=== PATIENT | female | born 1950 | race Caucasian/White ===

== ENCOUNTER 2016-09-19 20:36 | Observation (INO) | payer MEDICARE, MEDICAID ==
[~2016-09-19] VITALS: Ht 162.6 cm; Wt 107.4 kg
--- NOTE | 2016-09-19 21:33 | ERA ---
ER Documentation Chief Complaint Date/Time DATE: 09/19/16 TIME: 21:00 Chief Complaint weak/dizzy after taking total of 5-7 extra htn meds throughout day HPI The patient is a 66-year-old female, presenting to the ER because she has been taking metoprolol 50 mg 3 times and clonidine 0.1 mg 3 times daily in addition to lisinopril 10 mg daily. She is also supposed to take metoprolol 50 mg once a day and clonidine 0.1 mg once a day. However she is under a lot of stress and could not control her blood pressure, therefore she has been taking any medication as mentioned above. She feels anxious, complains of weak and dizzy, denies syncope, near syncope, neck pain, chest pain, dyspnea, abdominal pain, vomiting, dysuria, diarrhea. She does not smoke or drink Past medical history: Hypertension, dyslipidemia, hypothyroidism, anxiety Past surgical history: Left leg varicosis vein, cholecystectomy, fibroid resection, peptic ulcer ROS All systems reviewed and are negative except as per history of present illness. Medications Home Meds Reported Medications Aspirin* (Aspirin* EC) 81 Mg Tablet.dr, 81 MG PO DAILY, TAB 09/19/16 Esomeprazole Mag Trihydrate (Nexium) 40 Mg Capsule.dr, 40 MG PO DAILY, #30 CAP 09/19/16 Metoprolol Succinate* (Toprol XL*) 50 Mg Tab.er.24h, 50 MG PO DAILY, #30 TAB 09/19/16 Pravastatin Sodium* (Pravastatin Sodium*) 20 Mg Tablet, 20 MG PO HS, TAB 09/19/16 Methimazole* (Methimazole*) 5 Mg Tablet, 5 MG PO TID, TAB 09/19/16 Enalapril Maleate* (Enalapril Maleate*) 10 Mg Tablet, 10 MG PO DAILY, TAB 09/19/16 Acetaminophen/Aspirin/Caffeine* (Excedrin*) 1 Tab Tab, 1 TAB PO, TAB 09/19/16 Acetaminophen* (Acetaminophen*) 500 MG Extra Strength Tablet, 500 MG PO Q4H Y for PAIN AND OR ELEVATED TEMP, TAB 09/19/16 Allergies Allergies: Coded Allergies: No Known Drug Allergies (Verified Allergy, Unknown, 09/19/16) PMhx/Soc History of Surgery: Yes (VERACOSE VEIN SX, FIBROIDS, GALL BLADER, BILAT BREASTS ) Anesthesia Reaction: No Hx Neurological Disorder: No Hx Respiratory Disorders: No Hx Cardiac Disorders: Yes (HYPERLIPIDS) Hx Psychiatric Problems: No Hx Miscellaneous Medical Probl: Yes (ANXIETY) Hx Alcohol Use: No Hx Substance Use: No Hx Tobacco Use: No Smoking Status: Never smoker Physical Exam Vitals Vital Signs Date Time Temp Pulse Resp B/P Pulse Ox O2 Delivery O2 Flow Rate FiO2 09/19/16 20:49 97.8 54 17 137/66 97 Physical Exam Const: No acute distress. Head: Atraumatic. Eyes: Normal Conjunctiva. ENT: Normal External Ears, Nose and Mouth. Neck: Full range of motion. No meningismus. Resp: Clear to auscultation bilaterally. Cardio: Regular bradycardia Abd: Soft, non distended, normal bowel sounds, non tender. Skin: No petechiae or rashes. Back: No midline or flank tenderness. Ext: No cyanosis, or edema. Neur: Awake and alert. No focal deficit Psych: Normal Mood and Affect. Result Diagram: 09/19/16205409/19/162054 Results 24 hrs Laboratory Tests Test 09/19/16 20:55 White Blood Count 6.110^3/ul Red Blood Count 4.3810^6/ul Hemoglobin 13.7g/dl Hematocrit 40.8% Mean Corpuscular Volume 93.2fl Mean Corpuscular Hemoglobin 31.3pg Mean Corpuscular Hemoglobin Concent 33.6g/dl Red Cell Distribution Width 12.3% Platelet Count 90382^3/UL Mean Platelet Volume 10.6fl Neutrophils % 53.8% Lymphocytes % 35.7% Monocytes % 8.8% Eosinophils % 1.0% Basophils % 0.5% Nucleated Red Blood Cells % 0.0/100WBC Neutrophils # 3.310^3/ul Lymphocytes # 2.210^3/ul Monocytes # 0.510^3/ul Eosinophils # 0.110^3/ul Basophils # 0.010^3/ul Nucleated Red Blood Cells # 0.010^3/ul Sodium Level 140mmol/L Potassium Level 4.3mmol/L Chloride Level 106mmol/L Carbon Dioxide Level 29mmol/L Anion Gap 9 Blood Urea Nitrogen 21mg/dl Creatinine 0.79mg/dl Glucose Level 95mg/dl Calcium Level 9.3mg/dl Procedures/MDM EKG: Read by emergency physician Rate/Rhythm: Sinus bradycardia 52 beats/min QRS, ST, T-waves: No ST elevation, no T inversion, LVH Impression: Abnormal EKG MEDICAL MAKING DECISION: The patient is a 66-year-old female, presenting with acute bradycardia due to acute accidental overdose on beta-tori The differential diagnoses considered include but are not limited to sick sinus syndrome, acute coronary syndrome, acute myocardial infarction, pericarditis, pulmonary embolism, aortic dissection, pneumonia, pleural effusion, pneumothorax , GERD, chest wall pain. Departure Diagnosis: Primary Impression: Bradycardia Additional Impression: Accidental overdose Condition: Stable Comments I discussed the findings with the patient. I discussed the patient with the on- call hospitalist Dr. Flores who was made aware of the lab, the treatment, the patient condition. The patient is admitted to telemetry for 24 hours observation at 1025 pm EVE SHOEMAKER MD September 19, 2016 21:33 EVE SHOEMAKER MD September 19, 2016 21:33
[2016-09-19 22:11] LABS: ADD SCAN DIFF NO
[2016-09-19 22:13] LABS: BASOPHILS % 0.5 % (0.0-2.0); EOSINOPHILS # 0.1 10^3/ul (0.0-0.5); HEMATOCRIT 40.8 % (37.0-47.0); HEMOGLOBIN 13.7 g/dl (12.0-16.0); LYMPHOCYTES # 2.2 10^3/ul (0.8-2.9); LYMPHOCYTES % 35.7 % (15.0-51.0); MEAN CORPUSCULAR HEMOGLOBIN 31.3 pg (29.0-33.0); MEAN CORPUSCULAR HGB CONC 33.6 g/dl (32.0-37.0); MEAN CORPUSCULAR VOLUME 93.2 fl (82.0-101.0); MEAN PLATELET VOLUME 10.6 fl (7.4-10.4); MONOCYTE # 0.5 10^3/ul (0.3-0.9); MONOCYTES % 8.8 % (0.0-11.0); NEUTROPHIL # 3.3 10^3/ul (1.6-7.5); NEUTROPHILS % 53.8 % (39.0-77.0); PLATELET COUNT 263 10^3/UL (140-415); RED BLOOD COUNT 4.38 10^6/ul (4.20-5.40); RED CELL DISTRIBUTION WIDTH 12.3 % (11.5-14.5); WHITE BLOOD COUNT 6.1 10^3/ul (4.8-10.8)
[2016-09-19 22:15] LABS: POTASSIUM 4.3 mmol/L (3.5-5.1)
[2016-09-19 22:18] LABS: CREATININE 0.79 mg/dl (0.44-1.00)
[2016-09-19 22:19] LABS: CALCIUM 9.3 mg/dl (8.4-10.2)
[2016-09-19] MEDS ORDERED: EXCED PO (22:32)
[2016-09-19] MEDS ORDERED: METH-493 PO (22:32)
[2016-09-19] MEDS ORDERED: METO50TA16 PO (22:32)
[2016-09-19] MEDS ORDERED: ENAL10TA PO (22:32)
[2016-09-19] MEDS ORDERED: PRAV20TA63 PO (22:32)
[2016-09-19] MEDS ORDERED: ACET-141 PO (22:32)
[2016-09-19] MEDS ORDERED: ESOM40CA PO (22:32)
[2016-09-19] MEDS ORDERED: ASPI-664 PO (22:36)
--- NOTE | 2016-09-19 22:51 | HP ---
Date/Time of Note Date/Time of Note DATE: 09/19/16 TIME: 22:51 Assessment/Plan VTE Prophylaxis VTE Prophylaxis Intervention: LMWH Lines/Catheters IV Catheter Type (from [facility]): Saline Lock Assessment/Plan Chief Complaint/Hosp Course This is a 66-year-old female being admitted to the telemetry floor for: #1 symptomatic bradycardia: Likely secondary to beta-tori overdose. Will currently hold medications at this time. Continue patient on telemetry. Consult cardiology. #2 hypotension: Secondary to blood pressure medication overdose. Will hold antihypertensives for now. Continue to monitor blood pressure. Consider readjusting medication for her blood pressure as patient states that her current regimen of metoprolol and clonidine once a day are not adequate. #3 hyperthyroidism: We will check a TSH and thyroid profile, continue methimazole. #4 Hypertension: Currently holding beta-tori and GALINA and clonidine. Continue to monitor blood pressure. Restart/adjust blood pressure medications as indicated. #5 dyslipidemia: Continue statin. #6 DVT and GI prophylaxis: Lovenox, famotidine Further treatment strategy will be implemented as per the clinical course. Problems: HPI/ROS Admit Date/Time Admit Date/Time Hx of Present Illness Chief complaint: Low blood pressure low heart rate The patient is a 66-year-old female, presented to the ER because she took metoprolol 50 mg 3 times and clonidine 0.1 mg 3 times daily in addition to lisinopril 10 mg because her blood pressure was not improving. States that she was under a lot of stress and her blood pressure as everything were not improving therefore she took more of her medications and she was supposed to. Complains of feeling weak and dizzy, denies syncope, near syncope, neck pain, chest pain, dyspnea, abdominal pain, vomiting, dysuria, diarrhea. Allergies: nkda meds: see JUN ROS Const: As per HPI Eyes : No pain discharge or redness or change in visual acuity ENT: No pain, sore throat, congestion, congestion, dysphagia or discharge Respiratory: No shortness of breath, cough, sputum, wheezing, or pleuritic pain Cardiovascular: As per HPI GI : no change in appetite, abdominal pain, nausea, vomiting, diarrhea, constipation, or change in the color his stool Genitourinary: No dysuria, hematuria, flank pain , discharge or CVA tenderness Musculoskeletal: No joint pain, back pain, neck pain, restricted range of motion in neck or joints Skin: No rash, bruising or hives Neuro: As per HPI Endocrine: No polyuria, polydipsia, temperature intolerance Psych: No hallucination, depression, anxiety or suicidal ideation PMH/Family/Social Past Medical History Hypertension, dyslipidemia, hyperthyroidism, anxiety, reflux Past Surgical History Left leg varicosis vein, cholecystectomy, fibroid resection, peptic ulcer surgery, appendectomy, lumpectomy Family History Significant Family History: hypertension (Mom, dad) Social History Alcohol Use: none Smoking Status: Former smoker (1 pack a day 40 years, she quit 5 years ago) Drug Use: none Exam/Review of Systems Vital Signs Vitals Vital Signs Date Time Temp Pulse Resp B/P Pulse Ox O2 Delivery O2 Flow Rate FiO2 09/19/16 22:49 56 18 132/77 97 Room Air 09/19/16 20:49 97.8 Exam Exam General: Patient is well-developed well-nourished The patient is alert oriented -3 lying comfortably in bed. HEENT: Atraumatic, normocephalic. The pupils are equal, round and reactive. Extraocular motor are intact Neck: Supple with full range of motion. No rigidity or meningismus Chest: Nontender Lungs: Clear to auscultation bilaterally no crackles rales or wheezing Heart: Bradycardia, no overt murmurs appreciated Abdomen: Soft , nontender, nondistended , bowel sounds are present. No guarding no rebound tenderness , No masses or organomegaly. Extremities: Normal to inspection, no edema no cyanosis Neurologic: Normal mental status, speech normal, cranial nerves II through XII are intact, motor and sensory are intact, no focal weakness Additional Comments EKG: Rate/Rhythm: Sinus bradycardia 52 beats/min QRS, ST, T-waves: No ST elevation, no T inversion, LVH As per ED physician documentation Labs Result Diagram: 09/19/16205409/19/162054 Medications Medications Current Medications Ondansetron HCl (Zofran Inj) 4 mg Q6H PRN IV NAUSEA AND/OR VOMITING; Start at 23:00 Acetaminophen (Tylenol Tab) 650 mg Q6H PRN PO PAIN LEVEL 1-3 OR FEVER; Start at 23:00 Docusate Sodium (Colace) 100 mg Q12H PRN PO CONSTIPATION; Start 09/19/16 at 23: 00; Status UNV Bisacodyl (Dulcolax) 5 mg DAILY PRN PO CONSTIPATION; Start 09/19/16 at 23:00 Famotidine (Pepcid) 20 mg Q12 PO ; Start 09/19/16 at 23:00 Enoxaparin Sodium (Lovenox) 40 mg DAILY SC ; Start 09/20/16 at 09:00 Aspirin (Halfprin) 81 mg DAILY PO ; Start 09/20/16 at 09:00; Status UNV Methimazole (Tapazole) 5 mg TID PO ; Start 09/20/16 at 09:00; Status UNV Miscellaneous Information 20 mg HS PO ; Start 09/20/16 at 21:00; Status UNV BRITTANY FLOWERS September 19, 2016 22:51
[2016-09-19] MEDS ORDERED: ONDANSETRON 4 MG INJ IV PRN (23:00)
[2016-09-19] MEDS ORDERED: BISACODYL (EC) 5 MG TAB PO PRN (23:00)
[2016-09-19] MEDS ORDERED: NACL 0.9% 3 ML SYG IV SCH (23:00)
[2016-09-19] MEDS ORDERED: DOCUSATE SODIUM 100 MG CAP PO PRN (23:00)
[2016-09-19 23:11] VITALS: PULSE 56
[2016-09-19 23:15] VITALS: BP 137/73; PULSE 56; RESP 18
[2016-09-19] MEDS: FAMOTIDINE 20 MG TAB PO SCH (23:37)
[2016-09-19 23:46] LABS: CREATINE KINASE 48 IU/L (23-200)
[2016-09-19 23:58] LABS: CK-MB 0.75 ng/ml (0.0-2.4)
[2016-09-19 23:59] LABS: TROPONIN-I < 0.012 ng/ml (0.00-0.12)
[2016-09-20] VITALS (12 sets, daily range): BP systolic 99–164; BP diastolic 56–82; PULSE 52–70; RESP 16–20; Ht 162.6 cm; Wt 107.4 kg
[2016-09-20] MEDS ORDERED: SOD CHLORIDE 0.9% 500 ML IV ONE (05:30)
[2016-09-20 06:41] LABS: ADD SCAN DIFF NO
[2016-09-20 07:05] LABS: POTASSIUM 4.3 mmol/L (3.5-5.1)
[2016-09-20 07:06] LABS: ALBUMIN 4.3 g/dl (3.3-4.9); ALBUMIN/GLOBULIN RATIO 1.59; BILIRUBIN,INDIRECT 0.2 mg/dl (0-1.1); BILIRUBIN,TOTAL 0.2 mg/dl (0.2-1.3); CALCIUM 9.1 mg/dl (8.4-10.2); CHOL/HDL RATIO 3.6 RATIO; CREATININE 0.86 mg/dl (0.44-1.00); MAGNESIUM 2.1 mg/dl (1.7-2.5)
[2016-09-20 07:37] LABS: THYROID STIMULATING HORMONE 2.16 MIU/L (0.465-4.680)
[2016-09-20 08:09] LABS: CREATINE KINASE 42 IU/L (23-200)
[2016-09-20] MEDS: METHIMAZOLE 5 MG TAB PO SCH ×3 (08:13→20:34)
[2016-09-20] MEDS: ASPIRIN (EC) 81 MG TAB PO SCH (08:13)
[2016-09-20] MEDS: FAMOTIDINE 20 MG TAB PO SCH ×2 (08:13→20:34)
[2016-09-20] MEDS: ENOXAPARIN 40 MG/0.4 ML SYG SC SCH (08:16)
[2016-09-20 08:19] LABS: CK-MB 0.44 ng/ml (0.0-2.4)
[2016-09-20 08:25] LABS: TROPONIN-I < 0.012 ng/ml (0.00-0.12)
--- NOTE | 2016-09-20 10:45 | CONS ---
Date/Time of Note Date/Time of Note DATE: 09/20/16 TIME: 10:35 Assessment/Plan Assessment/Plan Chief Complaint/Hosp Course Bradycardia: Sinus, no heart block. Secondary to extra doses of metoprolol and clonidine. Now resolved. Dyspnea on exertion: likely from body habitus/obesity. No e/o heart failure by exam but will check echo HTN: BP on lower side from meds last night. Hyperthyroidism: TSH pending HL -hold metoprolol, clonidine -start amlodipine 5mg with holding parameters -ASA, lipitor -echo Problems: Consultation Date/Type/Reason Admit Date/Time Date of Consultation: September 20, 2016 Type of Consultation: Cardiology Reason for Consultation Bradycardia Referring Provider: BRITTANY FLOWERS Hx of Present Illness 66 yo F with a h/o HTN, HL, hyperthyroidism, who was brought in for evaluation of weakness and was noted to have bradycardia and transient hypotension. Pt notes that she has been having life related stress for the past 2 weeks and around the same time period, her BP has been difficult to control up to the 170s. She has been prescribed enalapril which she does not like to take as well as metoprolol. A friend of her also gave her clonidine. She states that yesterday she was feeling neck and headaches and her BP was 177 again. Within a few hours she took 3 metoprolol 50mg pills, 2-3 clonidine 1mg, and enalapril. She was not feeling well and had dizziness so she had her neighbor call 911. Currently she feels like shes back to her baseline. No chest pain or SOB though she mentions that she has been having some dyspnea with exertion. No syncope. Per HPI Past Medical History per HPI Family History Significant Family History: hypertension Social History Alcohol Use: none Smoking Status: Former smoker (1 pack a day 40 years, she quit 5 years ago) Drug Use: none Exam/Review of Systems Vital Signs Vitals Vital Signs Date Time Temp Pulse Resp B/P Pulse Ox O2 Delivery O2 Flow Rate FiO2 09/20/16 08:19 70 09/20/16 07:38 97.5 17 112/58 97 09/19/16 22:49 Room Air Intake and Output 09/19/16 09/19/16 09/20/16 14:59 22:59 06:59 Intake Total 460 ml Balance 460 ml Exam Constitutional: alert, oriented Psych: no complaints Head: normocephalic Eyes: nl conjunctiva ENMT: nl external ears & nose Neck: supple, No jvd Respiratory: clear to auscultation, No crackles/rales Cardiovascular: regular rate and rhythm, No edema, No systolic murmur Gastrointestinal: non-tender, soft Neurological: nl mental status, nl speech Results EKG: sinus bradycardia, no heart block Tele without heart block. Lowest HR 40s while asleep Result Diagram: 09/19/16205409/20/16 0600 Results 24 hrs Laboratory Tests Test 09/19/16 20:55 09/20/16 06:00 White Blood Count 6.1 Red Blood Count 4.38 Hemoglobin 13.7 Hematocrit 40.8 Mean Corpuscular Volume 93.2 Mean Corpuscular Hemoglobin 31.3 Mean Corpuscular Hemoglobin Concent 33.6 Red Cell Distribution Width 12.3 Platelet Count 263 Mean Platelet Volume 10.6 H Neutrophils % 53.8 Lymphocytes % 35.7 Monocytes % 8.8 Eosinophils % 1.0 Basophils % 0.5 Nucleated Red Blood Cells % 0.0 Neutrophils # 3.3 Lymphocytes # 2.2 Monocytes # 0.5 Eosinophils # 0.1 Basophils # 0.0 Nucleated Red Blood Cells # 0.0 Sodium Level 140 138 Potassium Level 4.3 4.3 Chloride Level 106 103 Carbon Dioxide Level 29 31 Anion Gap 9 8 Blood Urea Nitrogen 21 H 24 H Creatinine 0.79 0.86 Glucose Level 95 81 Calcium Level 9.3 9.1 Creatine Kinase 48 42 Creatine Kinase Index 1.6 1.0 Creatinine Kinase MB (Mass) 0.75 0.44 Troponin I < 0.012 < 0.012 Magnesium Level 2.1 Total Bilirubin 0.2 Direct Bilirubin 0.00 Indirect Bilirubin 0.2 Aspartate Amino Transf (AST/SGOT) 27 Alanine Aminotransferase (ALT/SGPT) 38 Alkaline Phosphatase 102 Total Protein 7.0 Albumin 4.3 Globulin 2.70 Albumin/Globulin Ratio 1.59 Triglycerides Level 171 H Cholesterol Level 211 H LDL Cholesterol, Calculated 119 HDL Cholesterol 58 Cholesterol/HDL Ratio 3.6 Thyroid Stimulating Hormone (TSH) 2.160 Medications Medications Current Medications Ondansetron HCl (Zofran Inj) 4 mg Q6H PRN IV NAUSEA AND/OR VOMITING; Start at 23:00 Acetaminophen (Tylenol Tab) 650 mg Q6H PRN PO PAIN LEVEL 1-3 OR FEVER; Start at 23:00 Docusate Sodium (Colace) 100 mg Q12H PRN PO CONSTIPATION; Start 09/19/16 at 23: 00 Bisacodyl (Dulcolax) 5 mg DAILY PRN PO CONSTIPATION; Start 09/19/16 at 23:00 Famotidine (Pepcid) 20 mg Q12 PO Last administered on 09/20/16 08:13; Admin Dose 20 MG; Start 09/19/16 at 23:00 Enoxaparin Sodium (Lovenox) 40 mg DAILY SC Last administered on 09/20/16 08:16 ; Admin Dose 40 MG; Start 09/20/16 at 09:00 Aspirin (Halfprin) 81 mg DAILY PO Last administered on 09/20/16 08:13; Admin Dose 81 MG; Start 09/20/16 at 09:00 Methimazole (Tapazole) 5 mg TID PO Last administered on 09/20/16 08:13; Admin Dose 5 MG; Start 09/20/16 at 09:00 Atorvastatin Calcium (Lipitor) 10 mg DAILY@21 PO ; Start 09/20/16 at 21:00 SAHRA LALA September 20, 2016 10:45
[2016-09-20 11:07] LABS: BASOPHILS % 0.6 % (0.0-2.0); EOSINOPHILS # 0.1 10^3/ul (0.0-0.5); EOSINOPHILS % 1.2 % (0.0-7.0); HEMATOCRIT 38.9 % (37.0-47.0); LYMPHOCYTES # 2.9 10^3/ul (0.8-2.9); LYMPHOCYTES % 41.8 % (15.0-51.0); MEAN CORPUSCULAR HEMOGLOBIN 31.1 pg (29.0-33.0); MEAN CORPUSCULAR HGB CONC 33.4 g/dl (32.0-37.0); MEAN CORPUSCULAR VOLUME 93.1 fl (82.0-101.0); MEAN PLATELET VOLUME 10.8 fl (7.4-10.4); MONOCYTE # 0.7 10^3/ul (0.3-0.9); MONOCYTES % 9.7 % (0.0-11.0); NEUTROPHIL # 3.2 10^3/ul (1.6-7.5); NEUTROPHILS % 46.6 % (39.0-77.0); PLATELET COUNT 269 10^3/UL (140-415); RED BLOOD COUNT 4.18 10^6/ul (4.20-5.40); RED CELL DISTRIBUTION WIDTH 12.5 % (11.5-14.5); WHITE BLOOD COUNT 6.9 10^3/ul (4.8-10.8)
--- NOTE | 2016-09-20 11:41 | PN ---
DATE: 09/20/2016 TIME OF EVALUATION: 9:45 a.m. SUBJECTIVE DATA: Denies any chest pain. Denies any dyspnea. OBJECTIVE DATA: VITAL SIGNS: Temperature 97.4, pulse is 70, respiratory rate 17, blood pressure 112/58, oxygen saturation 97% on room air. GENERAL: This is an obese Pashto female sitting in bed in no apparent distress. HEENT: Head normocephalic and atraumatic. Eyes: Anicteric sclerae. Conjunctivae clear. ENT: Nasal septum is midline. Oral mucosa is dry. NECK: Increased neck circumference. Supple. No JVD noticed. RESPIRATORY: Bilaterally diminished breath sounds. No adventitious breath sounds. No use of accessory muscles of respiration. CARDIAC: Regular rate and rhythm. No murmurs heard. ABDOMEN: Soft, nontender, and nondistended. Bowel sounds positive in all 4 quadrants. GENITOURINARY: Deferred. EXTREMITIES: No cyanosis, no clubbing, no edema. Bilateral lower extremity chronic venous changes with a discoloration on bilateral calves. Peripheral pulses in the bilateral lower extremities palpable. NEUROLOGIC: The patient is awake, alert, and oriented. Cranial nerves are grossly intact. LABORATORY AND DIAGNOSTIC DATA: Sodium 138, potassium 4.3, chloride 103, carbon dioxide 31, anion gap 8, BUN 24, creatinine 0.86, glucose 81, calcium 9.1. Triglycerides 171, total cholesterol 211, LDL 119, HDL of 58. ASSESSMENT AND PLAN: 1. Symptomatic bradycardia. Most probably secondary to underlying beta tori overdose. Beta blockers on hold at this time. Cardiology to evaluate the patient. 2. Essential hypertension with current hypotensive episode for medication overdose. Antihypertensives on hold at this time. To be evaluated by cardiology. 3. Hyperthyroidism. The patient is currently on methimazole. Will obtain an endocrinology evaluation. 4. Dyslipidemia. Continue statins. 5. Bilateral lower extremity varicosities. 6. Obesity. Body mass index of 40.6 kilograms per meter squared. Weight reduction will be advised. 7. Fluid, electrolytes, and nutrition. Low cholesterol diet. 8. Deep venous thrombosis prophylaxis. Subcutaneous Lovenox. 9. Gastrointestinal prophylaxis. Histamine-2 receptor blockers. PLAN: Continue telemetry monitoring. Await cardiology evaluation. Call endocrinology consult. Case discussed with Dr. Lopez. MEGAN LOPEZ MD, AM/JERICHO Conf#: [id number] DID#: [id number] CC: BRITTANY FLOWERS MD;*EndCC* MTDD
[2016-09-20] MEDS: AMLODIPINE 5 MG TAB PO SCH (11:57)
--- NOTE | 2016-09-20 12:55 | CONS ---
Date/Time of Note Date/Time of Note DATE: 09/20/16 TIME: 12:47 Assessment/Plan Assessment/Plan Problems: (1) Essential hypertension Status: Chronic Comment: I am in agreement with the machine assembler that amlodipine is a decent choice. I would actually use this in combination with enalapril or a different GALINA inhibitor. The combination of clonidine with metoprolol in this particular patient is a no known in most patient should be doing with some degree of respect and caution. Strongly consider evaluation for obstructive sleep apnea (2) Adenomatous goiter, toxic or with hyperthyroidism Status: Chronic Comment: I will repeat her thyroid ultrasound so we have some knowledge where we are here. Given that we have not in information to prior FNA biopsies I do not think we need to be running forward toward doing FNA biopsies. She is biochemically euthyroid on the current dosage of methimazole at 5 mg a day. This is a situation where actually I probably would have offered radioactive iodine ablation to shrink the nodules and render the patient euthyroid. For now continue methimazole at the same dosage. (3) Morbid obesity with BMI of 40.0-44.9, adult Status: Chronic Comment: Consider calorie restriction diet. I will strong suspicion she has obstructive sleep apnea. This would not explain the somewhat recalcitrant hypertension (4) Hyperlipidemia Status: Chronic Comment: Continue statin therapy Qualifiers: Qualified Code: E78.00 - Pure hypercholesterolemia Consultation Date/Type/Reason Admit Date/Time Date of Consultation: September 20, 2016 Type of Consultation: Endocrinology Reason for Consultation Hyperthyroid multinodular goiter; hypertension; morbid obesity; hyperlipidemia; Referring Provider: MEGAN ELDRIDGE NP Hx of Present Illness 66-year-old [place] female who has moved from city to [facility] and was changed physicians many times. She is recently changed her primary care physician in the last [address] Monika Cornejo, (fax [phone]). She has had variable blood pressures and had been placed on beta-tori after having previously been treated with amlodipine and enalapril. Because her blood pressure rising and she became nervous about this she took clonidine and came in with significant bradycardia. Please note on her baseline methimazole she is biochemically euthyroid. Regarding her thyroid she reports a history of a goiter and had been evaluated in [place] with FNA biopsy 2 for nodules. These biopsies were reportedly benign. Since that time she has been maintained on methimazole for hyperthyroidism at 5 mg once a day. Patient has never been advised to have radioactive iodine ablation Constitutional: no complaints Respiratory: no complaints Cardiovascular: other Gastrointestinal: no complaints (Bradycardia) Genitourinary: no complaints Psychological: no complaints Past Medical History 1) anxiety disorder, 2) morbid obesity, 3) essential hypertension, 4) hyperthyroid multinodular goiter, 5) hyperlipidemia, 6) lack of database Past Surgical History Past Surgical Hx: noncontributory Family History Significant Family History: hypertension Social History Alcohol Use: none Smoking Status: Former smoker (1 pack a day 40 years, she quit 5 years ago) Drug Use: none Exam/Review of Systems Vital Signs Vitals Vital Signs Date Time Temp Pulse Resp B/P Pulse Ox O2 Delivery O2 Flow Rate FiO2 09/20/16 12:10 55 09/20/16 11:27 97.7 18 112/58 98 09/19/16 22:49 Room Air Intake and Output 09/19/16 09/19/16 09/20/16 15:00 23:00 07:00 Intake Total 460 ml Balance 460 ml Exam Constitutional: alert, obese, oriented Head: atraumatic, normocephalic Neck: non-tender, supple, thyromegaly (Thyroid gland is diffusely enlarged with 2 lower pole nodules.) Respiratory: clear to auscultation, normal air movement Cardiovascular: nl pulses, regular rate and rhythm Gastrointestinal: nl liver, spleen, non-tender, soft Results Result Diagram: 09/20/16 0600 09/20/16 0600 Results 24 hrs Laboratory Tests Test 09/19/16 20:55 09/20/16 06:00 White Blood Count 6.1 6.9 Red Blood Count 4.38 4.18 L Hemoglobin 13.7 13.0 Hematocrit 40.8 38.9 Mean Corpuscular Volume 93.2 93.1 Mean Corpuscular Hemoglobin 31.3 31.1 Mean Corpuscular Hemoglobin Concent 33.6 33.4 Red Cell Distribution Width 12.3 12.5 Platelet Count 263 269 Mean Platelet Volume 10.6 H 10.8 H Neutrophils % 53.8 46.6 Lymphocytes % 35.7 41.8 Monocytes % 8.8 9.7 Eosinophils % 1.0 1.2 Basophils % 0.5 0.6 Nucleated Red Blood Cells % 0.0 0.0 Neutrophils # 3.3 3.2 Lymphocytes # 2.2 2.9 Monocytes # 0.5 0.7 Eosinophils # 0.1 0.1 Basophils # 0.0 0.0 Nucleated Red Blood Cells # 0.0 0.0 Sodium Level 140 138 Potassium Level 4.3 4.3 Chloride Level 106 103 Carbon Dioxide Level 29 31 Anion Gap 9 8 Blood Urea Nitrogen 21 H 24 H Creatinine 0.79 0.86 Glucose Level 95 81 Calcium Level 9.3 9.1 Creatine Kinase 48 42 Creatine Kinase Index 1.6 1.0 Creatinine Kinase MB (Mass) 0.75 0.44 Troponin I < 0.012 < 0.012 Hemoglobin A1c 5.9 Magnesium Level 2.1 Total Bilirubin 0.2 Direct Bilirubin 0.00 Indirect Bilirubin 0.2 Aspartate Amino Transf (AST/SGOT) 27 Alanine Aminotransferase (ALT/SGPT) 38 Alkaline Phosphatase 102 Total Protein 7.0 Albumin 4.3 Globulin 2.70 Albumin/Globulin Ratio 1.59 Triglycerides Level 171 H Cholesterol Level 211 H LDL Cholesterol, Calculated 119 HDL Cholesterol 58 Cholesterol/HDL Ratio 3.6 Thyroid Stimulating Hormone (TSH) 2.160 Free Thyroxine 1.02 Medications Medications Current Medications Ondansetron HCl (Zofran Inj) 4 mg Q6H PRN IV NAUSEA AND/OR VOMITING; Start at 23:00 Acetaminophen (Tylenol Tab) 650 mg Q6H PRN PO PAIN LEVEL 1-3 OR FEVER; Start at 23:00 Docusate Sodium (Colace) 100 mg Q12H PRN PO CONSTIPATION; Start 09/19/16 at 23: 00 Bisacodyl (Dulcolax) 5 mg DAILY PRN PO CONSTIPATION; Start 09/19/16 at 23:00 Famotidine (Pepcid) 20 mg Q12 PO Last administered on 09/20/16 08:13; Admin Dose 20 MG; Start 09/19/16 at 23:00 Enoxaparin Sodium (Lovenox) 40 mg DAILY SC Last administered on 09/20/16 08:16 ; Admin Dose 40 MG; Start 09/20/16 at 09:00 Aspirin (Halfprin) 81 mg DAILY PO Last administered on 09/20/16 08:13; Admin Dose 81 MG; Start 09/20/16 at 09:00 Methimazole (Tapazole) 5 mg TID PO Last administered on 09/20/16 11:57; Admin Dose 5 MG; Start 09/20/16 at 09:00 Atorvastatin Calcium (Lipitor) 10 mg DAILY@21 PO ; Start 09/20/16 at 21:00 Amlodipine Besylate (Norvasc) 5 mg DAILY PO Last administered on 09/20/16 11: 57; Admin Dose 5 MG; Start 09/20/16 at 11:00 MARK RIVAS MD September 20, 2016 12:55
--- NOTE | 2016-09-20 15:28 | RADRPT ---
Echocardiogram Report Patient Name: KAMLA REES Gender: Female Date: 1950 Study Date: 20-Sep-2016 Professional Housing Consultant: Eliel [facility] Location: [id number] Ref. Physician: SAHRA MELENDEZ Quality: Good Procedures: Transthoracic echocardiogram with complete 2D, M-Mode, and doppler examination. Indications: Chest Pain. 2D/M Mode Doppler Measurement Value Normal Ranges Measurement Value Normal Ranges LVIDd 2D 4.6 3.5 - 5.6 cm AV Peak Alfredo 1.2 m/sec LVIDs 2D 3.2 2.1 - 4.1 cm AV Peak PG 5.6 mmHg LVPWd 2D 1.0 0.6 - 1.1 cm LVOT Peak Alfredo 0.8 m/sec IVSd 2D 1.0 0.6 - 1.1 cm LVOT Peak PG 2.6 mmHg AoR Diam 2D 3.2 2.0 - 3.7 cm MV E Peak Alfredo 0.8 m/sec EDV 2D 99.1 cm3 MV A Peak Alfredo 1.0 m/sec ESV 2D 32.5 cm3 MV E/A 0.8 LA Dimen 2D 3.7 2.3 - 4.0 cm MV Decel Time 264 msec MV Decel Milam 3 MV E/A 0.8 Findings Left Ventricle: Normal left ventricular systolic function. Normal left ventricular cavity size. Normal left ventricular wall thickness. Ejection fraction is visually estimated at 65 %. Tissue Doppler/Mitral Doppler indices are consistent with impaired relaxation (Stage I diastolic dysfunction). Right Ventricle: Normal right ventricular size. Normal right ventricular systolic function. Left Atrium: There is mild enlargement of left atrium. Right Atrium: The right atrium is normal in size. Mitral Valve: Mitral valve leaflets appear mildly thickened. Mild mitral annular calcification. Trace mitral regurgitation. Aortic Valve: Normal appearance of the aortic valve. No significant aortic stenosis or insufficiency. Tricuspid Valve: Normal appearance and function of the tricuspid valve with trace physiologic regurgitation. Unable to obtain RVSP due to minimal presence of tricuspid regurgitation. Pulmonic Valve: Pulmonic valve not well visualized. There is mild pulmonic regurgitation. Pericardium: There is an anterior echo free space consistent with epicardial fat pad. Aorta: Normal aortic root. IVC: Normal size and normal respiratory collapse consistent with normal right atrial pressure. Conclusions Normal left ventricular systolic function. Normal left ventricular cavity size. Normal left ventricular wall thickness. Ejection fraction is visually estimated at 65 %. Tissue Doppler/Mitral Doppler indices are consistent with impaired relaxation (Stage I diastolic dysfunction). No significant valvular stenosis or regurgitation seen. Unable to obtain RVSP due to minimal presence of tricuspid regurgitation. RA pressure is 3 mmHg. Electronically Signed By: Sahra Melendez 20-Sep-2016 15:27:58 -0700 Patient Name: KAMLA REES Study Date: 20-Sep-2016 [id number]
[2016-09-20] MEDS: ACETAMINOPHEN 325 MG TAB PO PRN (20:40)
[2016-09-20] MEDS ORDERED: ATORVASTATIN 10 MG TAB PO SCH (21:00)
[2016-09-21] VITALS (10 sets, daily range): BP systolic 110–141; BP diastolic 59–71; PULSE 54–74; RESP 17–21
--- NOTE | 2016-09-21 04:25 | RADRPT ---
PROCEDURE: US thyroid. CLINICAL INDICATION: Multinodular goiter TECHNIQUE: Multiple sonographic images of the thyroid were obtained utilizing a linear array trans ducer with grayscale and color-flow and a Doppler imaging. The images were reviewed on a high-[employer] PACS workstation. COMPARISON: No prior studies are available for comparison. FINDINGS: The right lobe measures 4.7 x 2 x 1.7 cm. The left lobe measures 4.2 x 1.7 x 1.3 cm. The isthmus measures 4 mm. There is a partially cystic nodule with perhaps small linear calcifications within in the mid right thyroid measuring 1 x 1 by 1.2 cm. Calcified 5 x 8 mm nodule is seen in the upper right thyroid. H ypoechoic nodule in the lower pole of the left thyroid is seen, measuring 7 x 7 mm. There is also a probable colloid nodule in the upper left thyroid measuring 4 x 6 mm. IMPRESSION: Multiple bilateral thyroid nodules in a normal sized gland. Dominant nodule is a 1.2 cm nodule in t he mid right thyroid. Ultrasound-guided biopsy could be obtained if desired clinically. RPTAT: HLBE Physician Ace Date Time Electronically viewed and signed by Physician Ace on 09/21/2016 04:24 LE/
[2016-09-21 06:15] LABS: ADD SCAN DIFF NO
[2016-09-21 06:30] LABS: BASOPHILS % 0.6 % (0.0-2.0); EOSINOPHILS # 0.1 10^3/ul (0.0-0.5); EOSINOPHILS % 1.5 % (0.0-7.0); HEMATOCRIT 39.4 % (37.0-47.0); HEMOGLOBIN 12.8 g/dl (12.0-16.0); LYMPHOCYTES # 2.5 10^3/ul (0.8-2.9); LYMPHOCYTES % 45.9 % (15.0-51.0); MEAN CORPUSCULAR HEMOGLOBIN 30.4 pg (29.0-33.0); MEAN CORPUSCULAR HGB CONC 32.5 g/dl (32.0-37.0); MEAN CORPUSCULAR VOLUME 93.6 fl (82.0-101.0); MONOCYTE # 0.5 10^3/ul (0.3-0.9); MONOCYTES % 9.8 % (0.0-11.0); NEUTROPHIL # 2.3 10^3/ul (1.6-7.5); PLATELET COUNT 237 10^3/UL (140-415); RED BLOOD COUNT 4.21 10^6/ul (4.20-5.40); RED CELL DISTRIBUTION WIDTH 12.8 % (11.5-14.5); WHITE BLOOD COUNT 5.4 10^3/ul (4.8-10.8)
[2016-09-21 07:03] LABS: MAGNESIUM 2.1 mg/dl (1.7-2.5); PHOSPHORUS 4.6 mg/dl (2.5-4.9)
[2016-09-21 07:05] LABS: ALBUMIN 4.2 g/dl (3.3-4.9); ALBUMIN/GLOBULIN RATIO 1.55; BILIRUBIN,INDIRECT 0.2 mg/dl (0-1.1); BILIRUBIN,TOTAL 0.2 mg/dl (0.2-1.3); CALCIUM 8.9 mg/dl (8.4-10.2); CREATININE 0.81 mg/dl (0.44-1.00); POTASSIUM 4.6 mmol/L (3.5-5.1); TOTAL PROTEIN 6.9 g/dl (6.1-8.1)
[2016-09-21] MEDS: METHIMAZOLE 5 MG TAB PO SCH ×2 (08:27→12:16)
[2016-09-21] MEDS: AMLODIPINE 5 MG TAB PO SCH (08:27)
[2016-09-21] MEDS: ASPIRIN (EC) 81 MG TAB PO SCH (08:27)
[2016-09-21] MEDS: FAMOTIDINE 20 MG TAB PO SCH (08:28)
[2016-09-21] MEDS: ENOXAPARIN 40 MG/0.4 ML SYG SC SCH (08:30)
[2016-09-21] MEDS: ACETAMINOPHEN 325 MG TAB PO PRN (11:16)
--- NOTE | 2016-09-21 13:46 | CONS ---
Date/Time of Note Date/Time of Note DATE: 09/21/16 TIME: 13:42 Assessment/Plan Assessment/Plan Chief Complaint/Hosp Course 66-year-old [place] female who has moved from city to city and was changed physicians many times. She is recently changed her primary care physician in the last [address] Monika Cornejo, (fax [phone]). She has had variable blood pressures and had been placed on beta-tori after having previously been treated with amlodipine and enalapril. Because her blood pressure rising and she became nervous about this she took clonidine and came in with significant bradycardia. Please note on her baseline methimazole she is biochemically euthyroid. Regarding her thyroid she reports a history of a goiter and had been evaluated in [place] with FNA biopsy 2 for nodules. These biopsies were reportedly benign. Since that time she has been maintained on methimazole for hyperthyroidism at 5 mg once a day. Patient has never been advised to have radioactive iodine ablation Problems: (1) Adenomatous goiter, toxic or with hyperthyroidism Status: Chronic Comment: This is also known as a hyperthyroid multinodular goiter. Certainly an appropriate treatment would be consideration of usage of long-term methimazole therapy at the dosage necessary to bring the TSH in the normal range. This is the therapeutic regimens being used in this patient. She does have a single nodule greater than 10 mm. However in the setting of hyperthyroidism we would not go directly to biopsy. Nuclear medicine thyroid uptake and scan would be a consideration if this nodule is hyperthyroid then you would not biopsy it only would entertain the other option for treatment of hyperthyroid multinodular goiter. Our other option would be nuclear medicine ablation using I-131 in a dosage of 15 mCi. With that is quite likely that she would be rendered permanently euthyroid although there is a 25-30% chance should become hypothyroid. For now she will be considered observational basis this can be evaluated and options weighed as an outpatient. Please note that this is not contributing to any type of bradycardia dysrhythmia. (2) Essential hypertension Status: Chronic Comment: Her blood pressure control at this time is stable. Please note she is not on any negative chronotropic drugs now (3) Bradycardia Status: Acute Comment: Her pulse is still bit low. I am somewhat concerned that she may actually have some type of conduction system disease. However I will defer off the evaluation and judgment on this to cardiology. (4) Morbid obesity with BMI of 40.0-44.9, adult Status: Chronic Comment: Undoubtedly she has sleep apnea which was also a real consideration for her. Please note the obstructive sleep apnea can cause resistant to treatment hypertension. The dictation from yesterday has a typo in its as is not uncommon using [facility] system (5) Hyperlipidemia Status: Chronic Comment: Stable on treatment Qualifiers: Hyperlipidemia type: pure hypercholesterolemia Qualified Code: E78.00 - Pure hypercholesterolemia Consultation Date/Type/Reason Admit Date/Time September 19, 2016 at 22:25 Initial Consult Date 09/20/16 Type of Consultation: Endocrinology Reason for Consultation Toxic multinodular goiter on medications and euthyroid; bradycardia dysrhythmia Referring Provider: MEGAN ELDRIDGE NP 24 HR Interval Summary Constitutional: no complaints Exam/Review of Systems Vital Signs Vitals Vital Signs Date Time Temp Pulse Resp B/P Pulse Ox O2 Delivery O2 Flow Rate FiO2 09/21/16 12:00 58 09/21/16 11:46 98.1 18 117/64 96 09/19/16 22:49 Room Air Intake and Output 09/20/16 09/20/16 09/21/16 15:00 23:00 07:00 Intake Total 800 ml 500 ml Balance 800 ml 500 ml Exam No changes Results Result Diagram: 09/21/16 0550 09/21/16 0550 Results 24 hrs Laboratory Tests Test 09/21/16 05:50 White Blood Count 5.4 # Red Blood Count 4.21 Hemoglobin 12.8 Hematocrit 39.4 Mean Corpuscular Volume 93.6 Mean Corpuscular Hemoglobin 30.4 Mean Corpuscular Hemoglobin Concent 32.5 Red Cell Distribution Width 12.8 Platelet Count 237 Mean Platelet Volume 10.0 Neutrophils % 42.0 Lymphocytes % 45.9 Monocytes % 9.8 Eosinophils % 1.5 Basophils % 0.6 Nucleated Red Blood Cells % 0.0 Neutrophils # 2.3 Lymphocytes # 2.5 Monocytes # 0.5 Eosinophils # 0.1 Basophils # 0.0 Nucleated Red Blood Cells # 0.0 Sodium Level 142 Potassium Level 4.6 Chloride Level 110 Carbon Dioxide Level 29 Anion Gap 8 Blood Urea Nitrogen 23 H Creatinine 0.81 Glucose Level 90 Calcium Level 8.9 Phosphorus Level 4.6 Magnesium Level 2.1 Total Bilirubin 0.2 Direct Bilirubin 0.00 Indirect Bilirubin 0.2 Aspartate Amino Transf (AST/SGOT) 25 Alanine Aminotransferase (ALT/SGPT) 37 Alkaline Phosphatase 101 Total Protein 6.9 Albumin 4.2 Globulin 2.70 Albumin/Globulin Ratio 1.55 Medications Medications Current Medications Ondansetron HCl (Zofran Inj) 4 mg Q6H PRN IV NAUSEA AND/OR VOMITING; Start at 23:00 Acetaminophen (Tylenol Tab) 650 mg Q6H PRN PO PAIN LEVEL 1-3 OR FEVER Last administered on 09/21/16 11:16; Admin Dose 650 MG; Start 09/19/16 at 23:00 Docusate Sodium (Colace) 100 mg Q12H PRN PO CONSTIPATION; Start 09/19/16 at 23: 00 Bisacodyl (Dulcolax) 5 mg DAILY PRN PO CONSTIPATION; Start 09/19/16 at 23:00 Famotidine (Pepcid) 20 mg Q12 PO Last administered on 09/21/16 08:28; Admin Dose 20 MG; Start 09/19/16 at 23:00 Enoxaparin Sodium (Lovenox) 40 mg DAILY SC Last administered on 09/21/16 08:30 ; Admin Dose 40 MG; Start 09/20/16 at 09:00 Aspirin (Halfprin) 81 mg DAILY PO Last administered on 09/21/16 08:27; Admin Dose 81 MG; Start 09/20/16 at 09:00 Methimazole (Tapazole) 5 mg TID PO Last administered on 09/21/16 12:16; Admin Dose 5 MG; Start 09/20/16 at 09:00 Atorvastatin Calcium (Lipitor) 10 mg DAILY@21 PO Last administered on 20:34; Admin Dose 10 MG; Start 09/20/16 at 21:00 Amlodipine Besylate (Norvasc) 5 mg DAILY PO Last administered on 09/21/16 08:27 ; Admin Dose 5 MG; Start 09/20/16 at 11:00 MARK RIVAS MD Sep 21, 2016 13:46
--- NOTE | 2016-09-21 15:00 | PDOCDIS ---
Discharge Instructions CONDITION Patient Condition: Good HOME CARE INSTRUCTIONS: Special Diet: low fat, low cholesterol ACTIVITY: Activity Restrictions: Slowly Increase Activity Rest between Activity Avoid heavy lifting FOLLOW UP/APPOINTMENTS Appointments Follow up with PCP in one week Follow up with Cardiology in one week EDISON MERRILL MD Sep 21, 2016 15:00
[2016-09-21] MEDS ORDERED: AMLO-145 PO (15:03)
[2016-09-21] MEDS ORDERED: ATOR10TA65 PO (15:03)
[2016-09-21] MEDS ORDERED: ASPI-664 PO (15:07)
--- NOTE | 2016-09-21 16:03 | DS ---
DATE OF ADMISSION: 09/19/2016 DATE OF DISCHARGE: 09/21/2016 CONSULTANTS: 1. ____ 2. Dr. Amado Maciel. FINAL DIAGNOSES: 1. Symptomatic bradycardia likely secondary to metoprolol. Cardiology was consulted and metoprolol was placed on hold. 2. Essential hypertension with history of hypotension. The patient's metoprolol has been placed on hold. Blood pressure is well controlled on Norvasc. 3. History of hyperparathyroidism. Continue methimazole. 4. Dyslipidemia. The patient was placed on atorvastatin. 5. Bilateral lower extremity varicosities. The patient will be followed up by vascular surgeon as outpatient. 6. Morbid obesity with BMI of 40.6. Diet and exercise has been recommended. MEDICATIONS: 1. Amlodipine 5 mg. 2. Aspirin 81 mg. 3. Lipitor 20 mg. 4. Tylenol. 5. Excedrin. 6. Nexium. 7. Methimazole. ALLERGIES: NO KNOWN DRUG ALLERGIES. MEDICATIONS PLACED ON HOLD: Enalapril, metoprolol and Pravastatin. LABORATORIES: Sodium 142, potassium 4.6, chloride 110, bicarbonate 29, BUN 23, creatinine 0.81, glu cose 91. Hemoglobin A1c 5.9. LFTs all within normal limits. Triglyceride 171, total cholesterol 2 11, LDL 119, HDL 58. TSH 2.160. Free T4 of 1.02. WBC 5.4, hemoglobin 12.3, hematocrit 39.4, plate lets 237. PHYSICAL EXAMINATION: Temperature 98.1, pulse 59, respiration rate 18, blood pressure 170/64, oxyge n 96% on room air. PROCEDURES: Echocardiogram showed normal ejection fraction of 65%. Stage I diastolic dysfunction w ith no significant valvular stenosis or regurg. HOSPITAL COURSE: This is a 66-year-old lady with past medical history of essential hypertension, dy slipidemia, hyperthyroidism, morbid obesity who has been having fluctuant blood pressure. Blood pre ssure was found to be moderately elevated with systolic blood pressure above 180s. Patient took met oprolol 50 mg 3 times daily, Clonidine 0.1 mg 3 times daily in addition to Lisinopril 10 mg and her blood pressure was not improving, so she presented to [facility] ER where she was found to have a blood pre ssure 137/66 although she was found to be bradycardic with systolic pressure 54, which may have been likely secondary to metoprolol. Urology has been consulted. Patient's echocardiogram showed candelario l ejection fraction with stage I diastolic dysfunction. The patient was admitted to the telemetry f [facility], was observed on telemetry floor. Her heart rate has been ranging between 54 to 64 off metopro lol. The patient at this time denies any chest pain, shortness of breath, nausea, vomiting, diarrhe a, headache, dizziness or lightheadedness. In regard to her dyslipidemia, the patient's Pravachol h as been placed on hold. The patient has been placed on atorvastatin. In regard to her hyperthyroid ism, the patient has been continued on methimazole. Endocrinology has been consulted. Patient's bl ood pressure has been well controlled on Norvasc. This was initiated by cardiology. At this time, the patient is medically stable to be discharged home with a close followup with the primary care ph ysician and cardiology. Patient also has an appointment with her vascular surgeon tomorrow. CONDITION AT THE TIME OF DISCHARGE: Stable. Dictated By: EDISON BATEMAN/JERICHO Conf#: [id number] DID#: [id number]
--- NOTE | 2016-09-21 17:03 | CONS ---
Date/Time of Note Date/Time of Note DATE: 09/21/16 TIME: 17:02 Assessment/Plan Assessment/Plan Chief Complaint/Hosp Course Bradycardia: Sinus, no heart block. Secondary to extra doses of metoprolol and clonidine. Now resolved. Dyspnea on exertion: likely from body habitus/obesity. No e/o heart failure by exam. Preserved EF by echo HTN: BP better Hyperthyroidism HL -hold metoprolol, clonidine -continue amlodipine 5mg -ASA, lipitor Problems: Consultation Date/Type/Reason Admit Date/Time September 19, 2016 at 22:25 Initial Consult Date 09/20/16 Type of Consultation: Cardiology Referring Provider: MEGAN ELDRIDGE NP 24 HR Interval Summary Free Text/Dictation No o/n events. Doing well. No bradycardia Exam/Review of Systems Vital Signs Vitals Vital Signs Date Time Temp Pulse Resp B/P Pulse Ox O2 Delivery O2 Flow Rate FiO2 09/21/16 16:00 74 09/21/16 15:45 97.6 18 110/59 100 09/19/16 22:49 Room Air Intake and Output 09/20/16 09/20/16 09/21/16 15:00 23:00 07:00 Intake Total 800 ml 500 ml Balance 800 ml 500 ml Exam Constitutional: alert, oriented Psych: no complaints Head: atraumatic, normocephalic Neck: No jvd Respiratory: clear to auscultation, No crackles/rales Cardiovascular: regular rate and rhythm, No edema Gastrointestinal: non-tender, soft Neurological: nl mental status, nl speech Results Result Diagram: 09/21/16 0550 09/21/16 0550 Results 24 hrs Laboratory Tests Test 09/21/16 05:50 White Blood Count 5.4 # Red Blood Count 4.21 Hemoglobin 12.8 Hematocrit 39.4 Mean Corpuscular Volume 93.6 Mean Corpuscular Hemoglobin 30.4 Mean Corpuscular Hemoglobin Concent 32.5 Red Cell Distribution Width 12.8 Platelet Count 237 Mean Platelet Volume 10.0 Neutrophils % 42.0 Lymphocytes % 45.9 Monocytes % 9.8 Eosinophils % 1.5 Basophils % 0.6 Nucleated Red Blood Cells % 0.0 Neutrophils # 2.3 Lymphocytes # 2.5 Monocytes # 0.5 Eosinophils # 0.1 Basophils # 0.0 Nucleated Red Blood Cells # 0.0 Sodium Level 142 Potassium Level 4.6 Chloride Level 110 Carbon Dioxide Level 29 Anion Gap 8 Blood Urea Nitrogen 23 H Creatinine 0.81 Glucose Level 90 Calcium Level 8.9 Phosphorus Level 4.6 Magnesium Level 2.1 Total Bilirubin 0.2 Direct Bilirubin 0.00 Indirect Bilirubin 0.2 Aspartate Amino Transf (AST/SGOT) 25 Alanine Aminotransferase (ALT/SGPT) 37 Alkaline Phosphatase 101 Total Protein 6.9 Albumin 4.2 Globulin 2.70 Albumin/Globulin Ratio 1.55 Medications Medications Current Medications Ondansetron HCl (Zofran Inj) 4 mg Q6H PRN IV NAUSEA AND/OR VOMITING; Start at 23:00 Acetaminophen (Tylenol Tab) 650 mg Q6H PRN PO PAIN LEVEL 1-3 OR FEVER Last administered on 09/21/16 11:16; Admin Dose 650 MG; Start 09/19/16 at 23:00 Docusate Sodium (Colace) 100 mg Q12H PRN PO CONSTIPATION; Start 09/19/16 at 23: 00 Bisacodyl (Dulcolax) 5 mg DAILY PRN PO CONSTIPATION; Start 09/19/16 at 23:00 Famotidine (Pepcid) 20 mg Q12 PO Last administered on 09/21/16 08:28; Admin Dose 20 MG; Start 09/19/16 at 23:00 Enoxaparin Sodium (Lovenox) 40 mg DAILY SC Last administered on 09/21/16 08:30 ; Admin Dose 40 MG; Start 09/20/16 at 09:00 Aspirin (Halfprin) 81 mg DAILY PO Last administered on 09/21/16 08:27; Admin Dose 81 MG; Start 09/20/16 at 09:00 Methimazole (Tapazole) 5 mg TID PO Last administered on 09/21/16 12:16; Admin Dose 5 MG; Start 09/20/16 at 09:00 Atorvastatin Calcium (Lipitor) 10 mg DAILY@21 PO Last administered on 20:34; Admin Dose 10 MG; Start 09/20/16 at 21:00 Amlodipine Besylate (Norvasc) 5 mg DAILY PO Last administered on 09/21/16 08:27 ; Admin Dose 5 MG; Start 09/20/16 at 11:00 SAHRA LALA Sep 21, 2016 17:03
== END 2016-09-21 18:56 | disposition home or self-care (01) ==
LOC: E/R 20:36 → TEL 22:25
PROVIDERS: ADMIT Family Medicine; ATTEND Family Medicine
DX: R00.1 Bradycardia, unspecified (principal); I10 Essential (primary) hypertension; E21.3 Hyperparathyroidism, unspecified; E78.5 Hyperlipidemia, unspecified; E03.9 Hypothyroidism, unspecified; F41.9 Anxiety disorder, unspecified; I83.93 Asymptomatic varicose veins of bilateral lower extremities; E66.01 Morbid (severe) obesity due to excess calories; Z68.41 Body mass index [BMI] 40.0-44.9, adult; Z90.49 Acquired absence of other specified parts of digestive tract; Z87.11 Personal history of peptic ulcer disease; Z79.82 Long term (current) use of aspirin
CPT/HCPCS: 36415; 76536; 80048; 80053; 80061; 82550; 82553; 83036; 83735; 84100; 84439; 84443; 84484; 85025; 93005; 93306; 96372; 97162; 99285; G0378; J1650; J7040